=== PATIENT | female | born 1980 | race Caucasian/White ===

== ENCOUNTER 2016-11-30 09:32 | Emergency (ER) | payer BC ==
[2016-11-30 09:53] VITALS: BP 127/69
--- NOTE | 2016-11-30 10:11 | UC ---
Throat Pain/Nasal Teofilo HPI - HPI Summary HPI Summary: woke with sore throat yesterday. went on to have subjective fever, body aches, mild villegas. no cough/congestion. feels like strep. able to swallow secretions but painful. - History of Current Complaint Chief Complaint: UCGeneralIllness Stated Complaint: SORE THROAT,FEVER,ACHY Time Seen by Provider: 11/30/16 09:55 Hx Obtained From: Patient Hx Last Menstrual Period: 11/19/16 ?: No Onset/Duration: Sudden Onset, Lasting Days - 1, Still Present, Worse Since - today Severity: Moderate Pain Intensity: 8 Cough: None Associated Signs & Symptoms: Positive: Dysphagia, Fever - subjective. Negative : Drooling, Wheezing, Hoarseness, Sinus Discomfort, Nasal Discharge, Vomiting, Rash - Allergies/Home Medications Allergies/Adverse Reactions: Allergies Allergy/AdvReac Type Severity Reaction Status Date / Time No Known Allergies Allergy Verified 11/30/16 09:47 Home Medications: Home Medications NK [No Home Medications Reported] 11/30/16 [History Confirmed 11/30/16] PMH/Surg Hx/FS Hx/Imm Hx Respiratory History Of: Reports: Asthma - childhood - Surgical History Surgical History: Yes Surgery Procedure, Year, and Place: LEFT foot - Family History Known Family History: Negative: Cardiac Disease, Hypertension, Diabetes - Social History Occupation: Employed Full-time Lives: With Family Alcohol Use: None Substance Use Type: None Smoking Status (MU): Never Smoked Tobacco - Immunization History Most Recent Influenza Vaccination: None Most Recent Tetanus Shot: UTD Most Recent Pneumonia Vaccination: N/A Review of Systems Constitutional: Fever - subjective Skin: Negative Eyes: Negative ENT: Sore Throat Respiratory: Negative Cardiovascular: Negative Gastrointestinal: Other - nausea Musculoskeletal: Myalgia Neurological: Headache All Other Systems Reviewed And Are Negative: Yes Physical Exam Triage Information Reviewed: Yes Appearance: Well-Appearing, No Pain Distress, Well-Nourished Vital Signs: Initial Vital Signs Temp 97.9 F 11/30/16 09:49 Pulse 87 11/30/16 09:49 Resp 18 11/30/16 09:49 BP 127/69 11/30/16 09:49 Pulse Ox 98 11/30/16 09:49 Vital Signs Reviewed: Yes Eyes: Positive: Conjunctiva Clear. Negative: Discharge ENT: Positive: Hearing grossly normal, Pharyngeal erythema, TMs normal, Tonsillar swelling. Negative: Nasal congestion, Nasal drainage, Tonsillar exudate, Trismus, Muffled/hoarse voice Neck: Positive: Supple, Tenderness @, Enlarged Nodes @ Respiratory: Positive: Lungs clear, Normal breath sounds, No respiratory distress, No accessory muscle use Cardiovascular: Positive: RRR, No Murmur Abdomen Description: Positive: Nontender, Soft Bowel Sounds: Positive: Present Musculoskeletal Exam: Normal Neurological: Positive: Alert, Muscle Tone Normal Psychological: Positive: Age Appropriate Behavior Skin Exam: Normal Throat Pain/Nasal Course/Dx - Differential Dx/Diagnosis Differential Diagnosis/HQI/PQRI: Pharyngitis, Sinusitis, Tonsillitis, URI Provider Diagnoses: pharyngitis Discharge - Discharge Plan Condition: Stable Disposition: HOME Patient Education Materials: Pharyngitis (ED) Referrals: Shandra Dewey MD [Primary Care Provider] - If Needed Additional Instructions: DISCUSSED, TRY MAGIC MOUTHWASH TO CONTROL PAIN PRIOR TO EATING.
[2016-11-30 14:15] LABS: EBV Response YES
[2016-11-30 14:47] LABS: Mono Internal Control QC Line Present
[2016-12-01 12:53] LABS: EBV Capsid Ag IgG Ab Positive (Negative); EBV Capsid Ag IgM Ab Negative (Negative)
== END 2016-11-30 10:38 | disposition home or self-care (01) ==
LOC: UCCORT 09:32
DX: J02.9 Acute pharyngitis, unspecified (principal); R11.0 Nausea
CPT/HCPCS: 36415; 86308; 86664; 86665; 87651; 99202; G0463

== ENCOUNTER 2018-03-24 13:07 | Emergency (ER) | payer BC, OTHER ==
[2018-03-24 13:42] VITALS: BP 139/88
[2018-03-24] MEDS ORDERED: Ketorolac INJ* 60 MG/2 ML VIAL IM ONE (14:21)
--- NOTE | 2018-03-24 14:23 | UC ---
Back Pain HPI - HPI Summary HPI Summary: Pt presents with right low back pain that occurred after slipping inside walk in freezer at work. PT states she axel her back. no fall happened approx 10am this am. Took motrin. No bowel or bladder changes no paresthesia, no leg weakness. PT with h/o back pain in same area approx 2 years ago. No back surgery Pt's medications reviewed this visit - History of Current Complaint Chief Complaint: UCBackPain Stated Complaint: LOW BACK PAIN/INJURY(WC) Time Seen by Provider: 03/24/18 13:50 Hx Last Menstrual Period: 03/18/18 ?: No Onset/Duration: Sudden Onset Pain Intensity: 6 - Allergies/Home Medications Allergies/Adverse Reactions: Allergies Allergy/AdvReac Type Severity Reaction Status Date / Time No Known Allergies Allergy Verified 03/24/18 13:41 PMH/Surg Hx/FS Hx/Imm Hx Previously Healthy: Yes - back pain - Surgical History Surgical History: Yes Surgery Procedure, Year, and Place: LEFT foot - Family History Known Family History: Negative: Cardiac Disease, Hypertension, Diabetes - Social History Alcohol Use: None Substance Use Type: None Smoking Status (MU): Never Smoked Tobacco - Immunization History Most Recent Influenza Vaccination: None Most Recent Tetanus Shot: UTD Most Recent Pneumonia Vaccination: N/A Review of Systems Constitutional: Negative Neurovascular: Negative Musculoskeletal: Other: - right lower back pain All Other Systems Reviewed And Are Negative: Yes Physical Exam - Summary Physical Exam Summary: Vital Signs Reviewed: Yes A+Ox3, mild discomfort Eyes: Conjunctiva Clear, DOMENICA. EOM intact and full ENT: Hearing grossly normal TM x 2 clear, mmoist, uvula midline, no exudate, no erythema Neck: Positive: Supple Respiratory: Positive: No respiratory distress, No accessory muscle use + CTA throughout no w/r Cardiovascular: RRR nl s1, s2 no m/r CBT <2 sec abd soft + BS nt/nd no guarding, no distension Musculoskeletal Exam: walks with guarded gait to right low back no spinous process pain c/t/l/s + right low back paraspinal pain. + SLE b/l + flex/ext knee, ankle Neurological: Positive: Alert, + sensation throughout b/l LE equal 2+ patellar , achilles no clonus Psychological: Positive: Normal Response To Family Skin: Positive: no rash, no ecchymosis Triage Information Reviewed: Yes Vital Signs: Initial Vital Signs Temp 99.1 F 03/24/18 13:35 Pulse 77 03/24/18 13:35 Resp 18 03/24/18 13:35 BP 139/88 03/24/18 13:35 Pulse Ox 99 03/24/18 13:35 Back Pain Course/Dx - Course Course Of Treatment: Pt presents with right lumbar paraspinal muscle pain s/p slip at work. Pt distal CSM intact. suspect muscle spasm. Pt declined toradol. recommend motrin/apap. heat. stretch. flexeril. pcp f/u. physical therapy referral. return precautions. work note. WC forms completed - Differential Dx/Diagnosis Provider Diagnoses: acute low back pain. muscle spasm Discharge - Sign-Out/Discharge Documenting (check all that apply): Patient Departure - Discharge Plan Condition: Stable Disposition: HOME Prescriptions: Cyclobenzaprine TAB* [Flexeril 10 MG TAB*] 5 - 10 mg PO Q8HR PRN #10 tab PRN Reason: back spasm Patient Education Materials: Low Back Strain (ED), Muscle Spasm (ED) Forms: *Gen. Provider Communication Referrals: Shandra Dewey MD [Medical Doctor] - No Primary Care Phys,NOPCP [Primary Care Provider] - Additional Instructions: - Okay to alternate ibuprofen (Advil, Motrin) 600mg and Tylenol every 3hours as needed for pain. Take with food. Do NOT take for more than 4-5 days. -Take flexeril - muscle relaxer as prescribed- Do NOT drive, operate machinery or drink alcohol while taking [place]. This medication may cause constipation - use a stool softner as needed - this medication will be identified on most urine drug tests -Apply moist heat to your back for 20 minutes at a time, 4-5 times a day. Once your muscles are warm, slow gentle stretching exercises are important. After you stretch your muscles, apply ice - It is recommended you put a pillow under your knees when you lie on your back or between your knees when you lay on your back to help relieve the pressure from your low back - wearing a low back support brace may help your discomfort -Contact your doctor today to arrange a follow-up appointment early next week. You have also been given a referral to physical therapy - schedule an appointment -If you pain is uncontrolled - go to an emergency department for further treatment - Billing Disposition and Condition Condition: STABLE Disposition: Home
[2018-03-24] MEDS ORDERED: Acetaminophen TAB* 325 MG PO ONE (14:28)
== END 2018-03-24 14:39 | disposition home or self-care (01) ==
LOC: UCCORT 13:07
DX: M54.5 Low back pain (principal); M62.830 Muscle spasm of back
CPT/HCPCS: 99212; A9270-GY; G0463; J1885

== ENCOUNTER 2018-05-13 18:44 | Emergency (ER) | payer BC, OTHER ==
--- NOTE | 2018-05-13 19:00 | UC ---
Lower Extremity/Ankle HPI - History of Current Complaint Stated Complaint: LEFT FOOT INJ Time Seen by Provider: 05/13/18 19:00 Hx Last Menstrual Period: 03/18/18 - Allergies/Home Medications Allergies/Adverse Reactions: Allergies Allergy/AdvReac Type Severity Reaction Status Date / Time No Known Allergies Allergy Verified 05/13/18 18:58 Home Medications: Home Medications Ibuprofen TAB* [Advil TAB*] 400 mg PO Q6H PRN 05/13/18 [History Confirmed ] PMH/Surg Hx/FS Hx/Imm Hx - Surgical History Surgical History: Yes Surgery Procedure, Year, and Place: LEFT foot - Family History Known Family History: Negative: Cardiac Disease, Hypertension, Diabetes - Social History Alcohol Use: None Substance Use Type: None Smoking Status (MU): Never Smoked Tobacco - Immunization History Most Recent Influenza Vaccination: None Most Recent Tetanus Shot: UTD Most Recent Pneumonia Vaccination: N/A Discharge - Discharge Plan Referrals: No Primary Care Phys,NOPCP [Primary Care Provider] -
--- NOTE | 2018-05-13 19:23 | UC ---
Lower Extremity/Ankle HPI - HPI Summary HPI Summary: Per manufacturing planner: "Onset left lateral malleolar and border of left foot pain "a couple days ago" while pt was walking down a hallway, pain progressively worse. Hx of torn ligaments and fx to same foot." -here w/ her -had surgical repair in [place] 10 yrs ago. pain feels the same. pain 8/10, worse with weight bearing. decreased to 4-5/10 with 400 mgs ibuprofen. -she does not have any hardware. she did not have an injury this time as she did initially w/ frx. 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 she is weraing a sleeve to avoid swelling. -denies kidney or ulcer disease. + celiac. - History of Current Complaint Chief Complaint: UCLowerExtremity Stated Complaint: LEFT FOOT INJ Time Seen by Provider: 05/13/18 19:00 Hx Last Menstrual Period: 05/08/18 Pain Intensity: 7 - Allergies/Home Medications Allergies/Adverse Reactions: Allergies Allergy/AdvReac Type Severity Reaction Status Date / Time No Known Allergies Allergy Verified 05/13/18 18:58 Home Medications: Home Medications Ibuprofen TAB* [Advil TAB*] 400 mg PO Q6H PRN 05/13/18 [History Confirmed ] PMH/Surg Hx/FS Hx/Imm Hx Previously Healthy: Yes - Surgical History Surgical History: Yes Surgery Procedure, Year, and Place: LEFT foot - Family History Known Family History: Negative: Cardiac Disease, Hypertension, Diabetes - Social History Alcohol Use: None Substance Use Type: None Smoking Status (MU): Never Smoked Tobacco - Immunization History Most Recent Influenza Vaccination: None Most Recent Tetanus Shot: UTD Most Recent Pneumonia Vaccination: N/A Review of Systems Constitutional: Negative Skin: Negative Eyes: Negative ENT: Negative Respiratory: Negative Cardiovascular: Negative Gastrointestinal: Negative Genitourinary: Negative Motor: Negative Neurovascular: Negative Musculoskeletal: Arthralgia Neurological: Negative Psychological: Negative Is Patient Immunocompromised?: No All Other Systems Reviewed And Are Negative: Yes Physical Exam Triage Information Reviewed: Yes Appearance: Well-Appearing, No Pain Distress, Well-Nourished Vital Signs: Initial Vital Signs Temp 97.2 F 05/13/18 18:59 Pulse 71 05/13/18 18:59 Resp 14 05/13/18 18:59 BP 125/80 05/13/18 18:59 Pulse Ox 99 05/13/18 18:59 Eye Exam: Normal ENT Exam: Normal Respiratory Exam: Normal Cardiovascular Exam: Normal Musculoskeletal: Positive: Other: - see neuro exam Neurological: Positive: Other: - left ankle with lateral tenderness. there is no swelling. well healed scar. difficulty flexing and extending foot against resistence due to pain. sens intact. CR brisk. FROM of toes. Psychological Exam: Normal Skin Exam: Normal Lower Extremity Course/Dx - Course Course Of Treatment: left ankle xray - I do not appreciate any frxs on xray. need to await official radiology report. - Differential Dx/Diagnosis Differential Diagnosis/HQI/PQRI: Fracture (Closed), Sprain, Strain Provider Diagnoses: left ankle sprain Discharge - Sign-Out/Discharge Documenting (check all that apply): Patient Departure All imaging exams completed and their final reports reviewed: No - Discharge Plan Condition: Stable Disposition: HOME Patient Education Materials: Ankle Sprain (DC), Heel Spur (ED) Referrals: No Primary Care Phys,NOPCP [Primary Care Provider] - Ervin Mclean MD [Medical Doctor] - 1 Day Additional Instructions: I do not appreciate any fractures on your xray, but they will be read by the radiologist in [facility] morning. We will call you if the report states differently. Make sure to wear ankle support and good shoe support. You can take ibuprofen 600-800mgs every 8 hrs as needed for short period of time for pain and inflammation. You have also asked for the name of a application design engineer in [place] in case you choose to go there. Yfn Bergeron, [facility]. We talked about heel spurs seen on your xray that can cause you symptoms in [facility] future, although I do not think this is the current issue at hand. Good arch support is recommended. - Billing Disposition and Condition Condition: STABLE Disposition: Home
[2018-05-13 19:58] VITALS: BP 125/80
--- NOTE | 2018-05-14 07:41 | RAD ---
HISTORY: h/o left lateral ankle surgery. pain COMPARISONS: None VIEWS: 3 , Frontal, lateral, and oblique views of the left ankle FINDINGS: BONE DENSITY: Normal. BONES: There is no displaced fracture. There are plantar and posterior calcaneal enthesophytes. JOINTS: There is moderate osteoarthritis of the mid foot and of the tibiotalar and fibulotalar articulations. ALIGNMENT: There is no dislocation. SOFT TISSUES: Unremarkable. OTHER FINDINGS: None. IMPRESSION: OSTEOARTHRITIS. NO ACUTE OSSEOUS INJURY. IF SYMPTOMS PERSIST, RECOMMEND REPEAT IMAGING. R0
--- NOTE | 2018-05-14 13:17 | UC ---
- Progress Note Progress Note: xray no frx. c/w my assessment at time of pt dc. IMPRESSION: OSTEOARTHRITIS. NO ACUTE OSSEOUS INJURY. IF SYMPTOMS PERSIST, RECOMMEND REPEAT IMAGING. Discharge - Sign-Out/Discharge Documenting (check all that apply): Post-Discharge Follow Up All imaging exams completed and their final reports reviewed: Yes - Discharge Plan Condition: Stable Disposition: HOME Patient Education Materials: Ankle Sprain (DC), Heel Spur (ED) Referrals: Ervin Mclean MD [Medical Doctor] - 1 Day No Primary Care Phys,NOPCP [Primary Care Provider] - Additional Instructions: I do not appreciate any fractures on your xray, but they will be read by the radiologist in [facility] morning. We will call you if the report states differently. Make sure to wear ankle support and good shoe support. You can take ibuprofen 600-800mgs every 8 hrs as needed for short period of time for pain and inflammation. You have also asked for the name of a senior technical editor in [place] in case you choose to go there. Yfn Bergeron, [place] [facility]. We talked about heel spurs seen on your xray that can cause you symptoms in [facility] future, although I do not think this is the current issue at hand. Good arch support is recommended. - Billing Disposition and Condition Condition: STABLE Disposition: Home
== END 2018-05-13 19:57 | disposition home or self-care (01) ==
LOC: UCCORT 18:44
DX: S93.402A Sprain of unspecified ligament of left ankle, initial encounter (principal); X50.9XXA Other and unspecified overexertion or strenuous movements or postures, initial encounter; X50.0XXA Overexertion from strenuous movement or load, initial encounter; Y92.9 Unspecified place or not applicable
CPT/HCPCS: 99211; G0463

== ENCOUNTER 2018-10-12 08:59 | Emergency (ER) | payer OTHER ==
[2018-10-12 09:12] VITALS: BP 146/85
--- NOTE | 2018-10-12 10:20 | ED ---
Head Injury - HPI Summary HPI Summary: 38 yr old female with the complaint of head injury. At 8 am today the patient was at Work at [employer] in the kitchen, and a 10 pound can of tuna fell on top of her head in the frontal area. She reports remembering getting hit in the head, passed out immediately and fell to the floor. This was not witnessed fall. unknown length of LOC. She was helped up by other workers. She denies vomiting. She did feel nauseated. She denies neck pain. She denies change in vision, hearing, speech, swallowing, focal weakness, denies numbness. No change in gait. She denies any other injuries from falling. She does not feel confused. - History Of Current Complaint Chief Complaint: UCHeadInjury Stated Complaint: W/C - HEAD INJURY, NAUSEA, DIZZINESS Time Seen by Provider: 10/12/18 09:19 Hx Last Menstrual Period: 10/06/18 Pain Intensity: 10 - Allergies/Home Medications Allergies/Adverse Reactions: Allergies Allergy/AdvReac Type Severity Reaction Status Date / Time No Known Allergies Allergy Verified 10/12/18 09:07 PMH/Surg Hx/FS Hx/Imm Hx Respiratory History: Reports: Hx Asthma - childhood - Surgical History Surgery Procedure, Year, and Place: LEFT foot Infectious Disease History: No Infectious Disease History: Reports: Hx of Known/Suspected MRSA Denies: Traveled Outside the in Last 30 Days - Family History Known Family History: Negative: Cardiac Disease, Hypertension, Diabetes - Social History Occupation: Employed Full-time Lives: With Family Alcohol Use: None Substance Use Type: Reports: None Smoking Status (MU): Never Smoked Tobacco Review of Systems Negative: Photophobia, Blurred Vision Musculoskeletal: Negative Negative: Bruising Positive: Headache. Negative: Weakness, Paresthesia, Numbness, Syncope, Slurred Speech All Other Systems Reviewed And Are Negative: Yes Physical Exam - Summary Physical Exam Summary: She is fully alert and oriented times three with knowing the specific date and day of the year. Answers questions briskly and without any confusion or delay. Triage Information Reviewed: Yes Vital Signs On Initial Exam: Initial Vitals Temp Pulse Resp BP Pulse Ox 97.9 F 61 18 146/85 99 10/12/18 09:07 10/12/18 09:07 10/12/18 09:07 10/12/18 09:07 10/12/18 09:07 Vital Signs Reviewed: Yes Appearance: Positive: Well-Appearing, No Pain Distress Skin: Positive: Warm, Skin Color Reflects Adequate Perfusion Head/Face: Positive: Normal Head/Face Inspection. Negative: Cephalohematoma Eyes: Positive: EOMI, DOMENICA, Other: - no photophobia ENT: Positive: TMs normal. Negative: Nasal congestion, Nasal drainage Neck: Positive: Nontender. Negative: Tenderness @ Respiratory/Lung Sounds: Positive: Clear to Auscultation, Breath Sounds Present Cardiovascular: Positive: RRR. Negative: Murmur Abdomen Description: Positive: Nontender. Negative: Distended Musculoskeletal: Positive: Strength/ROM Intact Neurological: Positive: Sensory/Motor Intact, Alert, Oriented to Person Place, Time, CN Intact II-III, Normal Gait, Speech Normal Psychiatric: Positive: Normal - Gallagher Coma Scale Best Eye Response: 4 - Spontaneous Best Motor Response: 6 - Obeys Commands Best Verbal Response: 5 - Oriented Coma Scale Total: 15 Diagnostics - Vital Signs Vital Signs Temp Pulse Resp BP Pulse Ox 10/12/18 09:07 97.9 F 61 18 146/85 99 - Laboratory Lab Statement: Any lab studies that have been ordered have been reviewed, and results considered in the medical decision making process. - CT brain CT Interpretation Completed By: Radiologist - NAD Head Injury Course/Dx Course Of Treatment: 38 yr old female with minor head injury, reported LOC. CT neg. DC home. FU with PMD. - Diagnoses Provider Diagnoses: Head injury Discharge - Sign-Out/Discharge Documenting (check all that apply): Patient Departure All imaging exams completed and their final reports reviewed: No Studies - Discharge Plan Condition: Good Disposition: HOME Patient Education Materials: Head Injury (ED), Hypertension (ED) Referrals: Lili Harding NP [Primary Care Provider] - 1 Day - Billing Disposition and Condition Condition: GOOD Disposition: Home
== END 2018-10-12 10:32 | disposition home or self-care (01) ==
LOC: UCCORT 08:59
DX: S09.90XA Unspecified injury of head, initial encounter (principal); W20.8XXA Other cause of strike by thrown, projected or falling object, initial encounter; W18.39XA Other fall on same level, initial encounter; Y92.89 Other specified places as the place of occurrence of the external cause; Y99.0 Civilian activity done for income or pay
CPT/HCPCS: 70450; 99211; G0463